=== PATIENT | female | born 1990 | race American Indian/Alaskan Native ===

== ENCOUNTER 2017-03-15 18:44 | Emergency (ER) | payer OTHER ==
[~2017-03-15] VITALS: Ht 165.1 cm; Wt 72.6 kg
[2017-03-15] MEDS ORDERED: TUSSIONEX PENN115 ML PO (20:36)
[2017-03-15] MEDS ORDERED: TESSALON PERLE100 M1 PO (20:36)
== END 2017-03-15 23:03 | disposition home or self-care (01) ==
LOC: ER 18:44
DX: J40 Bronchitis, not specified as acute or chronic (principal)